=== PATIENT | male | born 1980 | race Hispanic/Latino ===

== ENCOUNTER 2022-05-10 19:12 | Inpatient (IN) | payer OTHER ==
[~2022-05-10] VITALS: Ht 162.6 cm; Wt 91.3 kg
[2022-05-10] MEDS ORDERED: ONDANSETRON 4MG INJ IVP ONE (19:30)
[2022-05-10] MEDS ORDERED: 0.9%NACL 1000ML 1,000 ML IV SCH (19:30)
[2022-05-10] MEDS ORDERED: HYDROMORPHONE 0.5 MG SYG (0.5MG/0.5ML) ONE (19:37)
[2022-05-10] MEDS ORDERED: ACETAMINOPHEN 500 MG TABLET ONE (19:37)
[2022-05-10] MEDS ORDERED: HYDROMORPHONE 0.5 MG SYG (0.5MG/0.5ML) IVP ONE (20:00)
[2022-05-10 20:03] LABS: BASOPHILS % (AUTO) 0.3 % (0.0-5.0); HEMATOCRIT 44.2 % (42-54); LYMPHOCYTES % (AUTO) 3.6 % (21.0-51.0); MEAN CORPUSCULAR HEMOGLOBIN 28.2 pg (27.0-33.0); MEAN CORPUSCULAR HGB CONC 33.9 g/dL (32.0-36.0); MEAN CORPUSCULAR VOLUME 83.1 fL (79-99); MONOCYTES % (AUTO) 1.2 % (3.0-13.0); NEUTROPHILS % (AUTO) 86.3 % (40.0-77.0); PLATELET COUNT (AUTO) 199 K/uL (130-400); RED BLOOD CELL COUNT(AUTO) 5.32 MIL/uL (4.50-6.20); RED CELL DISTRIBUTION WIDTH 13.5 % (11.0-15.5); WHITE BLOOD COUNT (AUTO) 3.4 K/uL (4.8-10.8)
[2022-05-10 20:05] LABS: APPEARANCE,URINE CLEAR (CLEAR); BILIRUBIN,URINE NEGATIVE (NEGATIVE); COLOR,URINE YELLOW (YELLOW); GLUCOSE, URINE (UA) NEGATIVE (NEGATIVE); KETONES,URINE NEGATIVE (NEGATIVE); LEUKOCYTE ESTERASE ,URINE NEGATIVE Leu/uL (NEGATIVE); NITRATE,URINE NEGATIVE (NEGATIVE); OCCULT BLOOD,URINE MODERATE (NEGATIVE); PROTEIN,URINE 70 mg/dL (NEGATIVE); UROBILINOGEN,URINE 0.2 mg/dL (0.2-1.0)
[2022-05-10 20:09] LABS: BACTERIA,URINE RARE /HPF (None Seen); MUCUS,URINE RARE LPF (None Seen); SQUAMOUS EPITHELIAL CELL,UR RARE /HPF (0-2)
[2022-05-10] MEDS ORDERED: ZOSYN 3.375GM+NS 50ML 50 ML IV STA (20:09)
[2022-05-10 20:12] LABS: CREATININE 1.2 mg/dL (0.5-1.5); POTASSIUM 3.5 mmol/L (3.5-5.1)
[2022-05-10 20:17] LABS: ALBUMIN 3.9 g/dL (3.5-5.0)
[2022-05-10] MEDS ORDERED: 0.9%NACL 1000ML 2,500 ML IV ONE (20:30)
[2022-05-10] MEDS ORDERED: KETOROLAC 30MG VIAL (30MG/ML) ONE (21:34)
[2022-05-10 21:48] LABS: AMPHET/METH SCREEN,URINE NEGATIVE (NEGATIVE); BARBITURATE SCREEN, URINE NEGATIVE (NEGATIVE); BENZODIAZEPINES SCREEN,URINE NEGATIVE (NEGATIVE); CANNABINOID SCREEN,URINE NEGATIVE (NEGATIVE); COCAINE SCREEN,URINE POSITIVE (NEGATIVE); OPIATE SCREEN,URINE NEGATIVE (NEGATIVE); PHENCYCLIDINE SCREEN,URINE NEGATIVE (NEGATIVE)
[2022-05-10] MEDS: 0.9%NACL 1000ML 1,000 ML IV SCH (22:16)
[2022-05-10] MEDS ORDERED: ONDANSETRON 4MG INJ IV PRN (22:30)
[2022-05-10] MEDS ORDERED: DIPHENHYDRAMINE HCL 25 MG CAPSULE PO PRN (22:30)
[2022-05-10] MEDS ORDERED: LACTULOSE 20 GM/30 ML UDCUP PO PRN (22:30)
[2022-05-10] MEDS ORDERED: NITROGLYCERIN 0.4 MG SL TAB SL PRN (22:30)
[2022-05-10] MEDS ORDERED: KETOROLAC 15MG/ML VIAL (15MG/ML) IV PRN (22:30)
[2022-05-10 22:36] LABS: HEMOGLOBIN A1C 6.2 % (4.0-6.0)
[2022-05-11] VITALS (25 sets, daily range): BP systolic 89–135; BP diastolic 50–89
[2022-05-11] MEDS ORDERED: ZOSYN 3.375GM+NS 50ML 50 ML IV SCH (05:00)
[2022-05-11] MEDS: FAMOTIDINE 20MG VIAL IV SCH ×2 (09:00→20:29)
[2022-05-11] MEDS ORDERED: BUPIVACAINE/PF 0.5% 10ML VIAL ONE (10:26)
[2022-05-11] MEDS: MEROPENEM 1 GM VIAL IVP SCH ×2 (11:30→23:28)
[2022-05-11] MEDS ORDERED: MIDAZOLAM HCL 1 MG/ML 2ML VIAL ONE (11:35)
[2022-05-11] MEDS ORDERED: PROPOFOL 10 MG/ML 20ML VIAL IV ONE (11:36)
[2022-05-11] MEDS ORDERED: ONDANSETRON 4MG INJ ONE (11:36)
[2022-05-11] MEDS ORDERED: ROCURONIUM 10MG/1ML SYR 10 MG/ML ML ONE ×2 (11:36→14:04)
[2022-05-11] MEDS ORDERED: FENTANYL CITRATE PF 50 MCG/1 ML 5ML AMP IV ONE (11:37)
[2022-05-11] MEDS ORDERED: HYDROMORPHONE 1 MG INJ ONE (13:50)
[2022-05-11] MEDS ORDERED: PHENYLEPHRINE HCL 10 MG/ML 1ML VIAL IV ONE (13:54)
[2022-05-11] MEDS ORDERED: FENTANYL CITRATE PF 50 MCG/1 ML 2ML VIAL ONE ×2 (16:02→16:26)
[2022-05-11] MEDS ORDERED: KETOROLAC 30MG VIAL (30MG/ML) ONE (16:02)
[2022-05-11] MEDS ORDERED: NEOSTIGMINE 5MG/5ML SYR IV ONE (16:38)
[2022-05-11] MEDS ORDERED: GLYCOPYRROLATE 1 MG/5 ML SYRINGE ONE (16:38)
[2022-05-11] MEDS ORDERED: MEPERIDINE-PF 25 MG/ML SYG ONE (17:18)
[2022-05-12 04:10] VITALS: BP 128/85
[2022-05-12] MEDS: 0.9%NACL 1000ML 1,000 ML IV SCH ×2 (04:30→16:59)
[2022-05-12 05:23] LABS: BASOPHILS % (AUTO) 0.2 % (0.0-5.0); EOSINOPHILS % (AUTO) 0.4 % (0.0-8.0); HEMATOCRIT 36.2 % (42-54); LYMPHOCYTES % (AUTO) 8.2 % (21.0-51.0); MEAN CORPUSCULAR HEMOGLOBIN 28.5 pg (27.0-33.0); MEAN CORPUSCULAR HGB CONC 33.4 g/dL (32.0-36.0); MEAN CORPUSCULAR VOLUME 85.2 fL (79-99); MONOCYTES % (AUTO) 4.2 % (3.0-13.0); NEUTROPHILS % (AUTO) 86.3 % (40.0-77.0); PLATELET COUNT (AUTO) 109 K/uL (130-400); RED BLOOD CELL COUNT(AUTO) 4.25 MIL/uL (4.50-6.20); RED CELL DISTRIBUTION WIDTH 13.8 % (11.0-15.5); WHITE BLOOD COUNT (AUTO) 12.1 K/uL (4.8-10.8)
[2022-05-12 05:48] LABS: CREATININE 0.9 mg/dL (0.5-1.5); CRP QUANTITATIVE 158.9 mg/L (0.00-9.0); MAGNESIUM 1.8 mg/dL (1.80-2.40); POTASSIUM 3.9 mmol/L (3.5-5.1)
[2022-05-12 07:55] VITALS: BP 115/63
[2022-05-12] MEDS: MORPHINE 2 MG SYG IM SCH (08:30)
[2022-05-12] MEDS ORDERED: MORPHINE 2 MG SYG ONE (08:33)
[2022-05-12] MEDS: FAMOTIDINE 20MG VIAL IV SCH ×2 (08:44→20:19)
[2022-05-12] MEDS: MEROPENEM 1 GM VIAL IVP SCH ×2 (11:45→22:41)
[2022-05-12 11:55] VITALS: BP 148/83
[2022-05-12 14:50] VITALS: BP 141/88
[2022-05-12] MEDS: HEPARIN 5,000 UNIT VIAL SQ SCH ×2 (14:54→21:05)
[2022-05-12] MEDS ORDERED: IOHEXOL 350 MG/ML 100ML INFUS..BTL IV ONE (15:11)
[2022-05-12 16:00] VITALS: BP 144/93
[2022-05-12] MEDS ORDERED: MAGNESIUM 2GM PREMIX 50ML 50 ML IV PRN (16:00)
[2022-05-12 16:10] LABS: ABG BASE EXCESS -0.9 mmol/L (-2.0-3.0); ABG OXYGEN SATURATION 83.7 % (95.0-99.0); ABG PCO2 36 mmHg (35-48)
[2022-05-12] MEDS: SOLU-MEDROL 125MG VIAL IVP SCH (16:32)
[2022-05-12] MEDS: AZITHROMYCIN 500MG+NS 250ML IVPB SCH (16:59)
[2022-05-12] MEDS: IPRATROPIUM/ALBUTEROL SULFATE 3 ML SOLUTION IH SCH (18:00)
[2022-05-12 19:06] VITALS: BP 147/91
[2022-05-12] MEDS: TRAMADOL HCL 50 MG TABLET PO PRN (20:19)
[2022-05-12] MEDS: GUAIFENESIN-DM 200/20 MG 10 ML PO PRN (20:19)
[2022-05-13 00:06] VITALS: BP_SYST 138; BP_SYST 148; BP_DIAS 72; BP_DIAS 82
[2022-05-13] MEDS: SOLU-MEDROL 125MG VIAL IVP SCH ×3 (00:19→16:53)
[2022-05-13] MEDS: GUAIFENESIN-DM 200/20 MG 10 ML PO PRN ×2 (00:53→23:05)
[2022-05-13 04:18] LABS: BASOPHILS % (AUTO) 0.1 % (0.0-5.0); HEMATOCRIT 38.3 % (42-54); LYMPHOCYTES % (AUTO) 6.8 % (21.0-51.0); MEAN CORPUSCULAR HEMOGLOBIN 28.4 pg (27.0-33.0); MEAN CORPUSCULAR HGB CONC 33.9 g/dL (32.0-36.0); MEAN CORPUSCULAR VOLUME 83.6 fL (79-99); NEUTROPHILS % (AUTO) 90.1 % (40.0-77.0); PLATELET COUNT (AUTO) 143 K/uL (130-400); RED BLOOD CELL COUNT(AUTO) 4.58 MIL/uL (4.50-6.20); RED CELL DISTRIBUTION WIDTH 13.4 % (11.0-15.5)
[2022-05-13 04:38] LABS: CREATININE 0.8 mg/dL (0.5-1.5); MAGNESIUM 2.2 mg/dL (1.80-2.40); POTASSIUM 4.2 mmol/L (3.5-5.1)
[2022-05-13] MEDS: 0.9%NACL 1000ML 1,000 ML IV SCH ×2 (05:50→07:28)
[2022-05-13] MEDS: HEPARIN 5,000 UNIT VIAL SQ SCH ×3 (05:52→21:27)
[2022-05-13] MEDS: MORPHINE 2 MG SYG IM SCH (07:04)
[2022-05-13] MEDS: FAMOTIDINE 20MG VIAL IV SCH ×2 (07:28→21:24)
[2022-05-13] MEDS: TRAMADOL HCL 50 MG TABLET PO PRN ×2 (08:11→21:28)
[2022-05-13] MEDS: SODIUM CHLORIDE 3% FOR INHALATION 4 ML/AMP VIAL.NEB IH SCH ×2 (08:18→18:19)
[2022-05-13 08:22] VITALS: BP 153/99
[2022-05-13] MEDS: IPRATROPIUM/ALBUTEROL SULFATE 3 ML SOLUTION IH SCH ×4 (10:53→23:19)
[2022-05-13] MEDS: MEROPENEM 1 GM VIAL IVP SCH ×2 (11:39→23:05)
[2022-05-13 12:23] VITALS: BP 143/89
[2022-05-13 16:13] VITALS: BP 135/82
[2022-05-13] MEDS: AZITHROMYCIN 500MG+NS 250ML IVPB SCH (16:53)
[2022-05-13 19:01] VITALS: BP 131/80
[2022-05-13 23:02] VITALS: BP 131/68
[2022-05-14] MEDS: SOLU-MEDROL 40MG VIAL IVP SCH ×4 (00:03→23:36)
[2022-05-14 03:48] VITALS: BP 144/84
[2022-05-14 04:19] LABS: BASOPHILS % (AUTO) 0.2 % (0.0-5.0); HEMATOCRIT 36.5 % (42-54); LYMPHOCYTES % (AUTO) 9.5 % (21.0-51.0); MEAN CORPUSCULAR HEMOGLOBIN 28.2 pg (27.0-33.0); MEAN CORPUSCULAR HGB CONC 34.2 g/dL (32.0-36.0); MEAN CORPUSCULAR VOLUME 82.4 fL (79-99); MONOCYTES % (AUTO) 6.8 % (3.0-13.0); NEUTROPHILS % (AUTO) 80.9 % (40.0-77.0); PLATELET COUNT (AUTO) 222 K/uL (130-400); RED BLOOD CELL COUNT(AUTO) 4.43 MIL/uL (4.50-6.20); RED CELL DISTRIBUTION WIDTH 13.1 % (11.0-15.5); WHITE BLOOD COUNT (AUTO) 8.9 K/uL (4.8-10.8)
[2022-05-14 04:40] LABS: ALBUMIN 2.6 g/dL (3.5-5.0); CREATININE 0.9 mg/dL (0.5-1.5); CRP QUANTITATIVE 47.6 mg/L (0.00-9.0); POTASSIUM 3.9 mmol/L (3.5-5.1); TOTAL PROTEIN, SERUM 6.6 g/dL (6.0-8.3)
[2022-05-14] MEDS: HEPARIN 5,000 UNIT VIAL SQ SCH ×3 (05:24→23:34)
[2022-05-14] MEDS: GUAIFENESIN-DM 200/20 MG 10 ML PO PRN ×2 (05:24→20:15)
[2022-05-14] MEDS: SODIUM CHLORIDE 3% FOR INHALATION 4 ML/AMP VIAL.NEB IH SCH ×2 (06:28→21:24)
[2022-05-14] MEDS: IPRATROPIUM/ALBUTEROL SULFATE 3 ML SOLUTION IH SCH ×4 (06:29→23:44)
[2022-05-14 07:30] VITALS: BP 128/69
[2022-05-14] MEDS: MORPHINE 2 MG SYG IM SCH (08:30)
[2022-05-14] MEDS: MEROPENEM 1 GM VIAL IVP SCH ×2 (10:20→23:35)
[2022-05-14] MEDS: FAMOTIDINE 20MG VIAL IV SCH ×2 (10:20→20:15)
[2022-05-14 12:05] VITALS: BP 147/85
[2022-05-14] MEDS: AZITHROMYCIN 500MG+NS 250ML IVPB SCH (15:59)
[2022-05-14 16:59] VITALS: BP 148/82
[2022-05-14 18:55] VITALS: BP 142/83
[2022-05-14] MEDS: TRAMADOL HCL 50 MG TABLET PO PRN (20:16)
[2022-05-14] MEDS: BUDESONIDE 0.5 MG/2 ML INH IH SCH (21:22)
[2022-05-14 23:12] VITALS: BP 138/85
[2022-05-15 03:11] VITALS: BP 151/73
[2022-05-15 04:02] LABS: BASOPHILS % (AUTO) 0.3 % (0.0-5.0); LYMPHOCYTES % (AUTO) 10.5 % (21.0-51.0); MEAN CORPUSCULAR HEMOGLOBIN 27.8 pg (27.0-33.0); MEAN CORPUSCULAR HGB CONC 33.8 g/dL (32.0-36.0); MEAN CORPUSCULAR VOLUME 82.2 fL (79-99); MONOCYTES % (AUTO) 12.3 % (3.0-13.0); NEUTROPHILS % (AUTO) 71.3 % (40.0-77.0); PLATELET COUNT (AUTO) 256 K/uL (130-400); RED CELL DISTRIBUTION WIDTH 13.2 % (11.0-15.5); WHITE BLOOD COUNT (AUTO) 11.3 K/uL (4.8-10.8)
[2022-05-15 04:21] LABS: ALBUMIN 2.7 g/dL (3.5-5.0); CREATININE 0.8 mg/dL (0.5-1.5); CRP QUANTITATIVE 19.8 mg/L (0.00-9.0); TOTAL PROTEIN, SERUM 6.4 g/dL (6.0-8.3)
[2022-05-15] MEDS: HEPARIN 5,000 UNIT VIAL SQ SCH ×3 (06:23→22:48)
[2022-05-15] MEDS: IPRATROPIUM/ALBUTEROL SULFATE 3 ML SOLUTION IH SCH ×4 (06:44→23:05)
[2022-05-15] MEDS: BUDESONIDE 0.5 MG/2 ML INH IH SCH ×2 (06:44→19:05)
[2022-05-15] MEDS: SODIUM CHLORIDE 3% FOR INHALATION 4 ML/AMP VIAL.NEB IH SCH ×2 (06:58→18:34)
[2022-05-15 07:38] VITALS: BP 143/100
[2022-05-15] MEDS: MORPHINE 2 MG SYG IM SCH (08:30)
[2022-05-15] MEDS: FLUCONAZOLE 200 MG/NS 100 ML 100 ML IV SCH ×2 (09:00→09:34)
[2022-05-15] MEDS: TRAMADOL HCL 50 MG TABLET PO PRN ×2 (09:33→19:57)
[2022-05-15] MEDS: SOLU-MEDROL 40MG VIAL IVP SCH ×3 (09:34→23:46)
[2022-05-15] MEDS: FAMOTIDINE 20MG VIAL IV SCH ×2 (09:34→19:57)
[2022-05-15 11:10] VITALS: BP 148/81
[2022-05-15] MEDS: MEROPENEM 1 GM VIAL IVP SCH ×2 (11:59→22:48)
[2022-05-15] MEDS: AZITHROMYCIN 500MG+NS 250ML IVPB SCH (15:35)
[2022-05-15 16:00] VITALS: BP 149/86
[2022-05-15 19:06] VITALS: BP 145/92
[2022-05-16] VITALS (8 sets, daily range): BP systolic 141–174; BP diastolic 78–95
[2022-05-16] MEDS: ACETAMINOPHEN 325 MG TAB PO PRN (03:27)
[2022-05-16 03:31] LABS: HEMATOCRIT 36.9 % (42-54); MEAN CORPUSCULAR HEMOGLOBIN 28.3 pg (27.0-33.0); MEAN CORPUSCULAR HGB CONC 34.7 g/dL (32.0-36.0); MEAN CORPUSCULAR VOLUME 81.6 fL (79-99); NUCLEATED RED BLOOD CELLS 0.3 % (0.0-0.19); RED BLOOD CELL COUNT(AUTO) 4.52 MIL/uL (4.50-6.20); RED CELL DISTRIBUTION WIDTH 13.2 % (11.0-15.5); WHITE BLOOD COUNT (AUTO) 15.8 K/uL (4.8-10.8)
[2022-05-16 03:37] LABS: CREATININE 0.8 mg/dL (0.5-1.5); POTASSIUM 3.9 mmol/L (3.5-5.1)
[2022-05-16] MEDS: HEPARIN 5,000 UNIT VIAL SQ SCH ×3 (05:37→20:14)
[2022-05-16] MEDS: IPRATROPIUM/ALBUTEROL SULFATE 3 ML SOLUTION IH SCH ×4 (06:37→23:07)
[2022-05-16] MEDS: BUDESONIDE 0.5 MG/2 ML INH IH SCH ×2 (06:37→19:36)
[2022-05-16] MEDS: SODIUM CHLORIDE 3% FOR INHALATION 4 ML/AMP VIAL.NEB IH SCH ×2 (06:38→19:36)
[2022-05-16] MEDS: SOLU-MEDROL 40MG VIAL IVP SCH ×2 (08:19→18:02)
[2022-05-16] MEDS: FAMOTIDINE 20MG VIAL IV SCH ×2 (08:23→20:07)
[2022-05-16] MEDS: FLUCONAZOLE 200 MG/NS 100 ML 100 ML IV SCH ×2 (08:25→08:33)
[2022-05-16] MEDS: MEROPENEM 1 GM VIAL IVP SCH (11:19)
[2022-05-16] MEDS ORDERED: LABETALOL 20MG VIAL IV PRN (19:00)
[2022-05-16] MEDS ORDERED: PRED20TA3 PO (19:01)
[2022-05-16] MEDS ORDERED: FLUT1BLS3 IH (19:01)
[2022-05-16] MEDS ORDERED: LEVO-70 PO (19:01)
[2022-05-16] MEDS ORDERED: ALBUHFA IH (19:01)
[2022-05-16] MEDS: TRAMADOL HCL 50 MG TABLET PO PRN (21:03)
[2022-05-17 00:03] VITALS: BP 148/84
[2022-05-17 03:03] VITALS: BP 145/82
[2022-05-17 04:32] LABS: BASOPHILS % (AUTO) 0.6 % (0.0-5.0); EOSINOPHILS % (AUTO) 0.1 % (0.0-8.0); HEMATOCRIT 39.1 % (42-54); LYMPHOCYTES % (AUTO) 9.3 % (21.0-51.0); MEAN CORPUSCULAR HEMOGLOBIN 28.3 pg (27.0-33.0); MEAN CORPUSCULAR HGB CONC 34.3 g/dL (32.0-36.0); MEAN CORPUSCULAR VOLUME 82.5 fL (79-99); MONOCYTES % (AUTO) 9.2 % (3.0-13.0); NEUTROPHILS % (AUTO) 65.5 % (40.0-77.0); NUCLEATED RED BLOOD CELLS 0.3 % (0.0-0.19); PLATELET COUNT (AUTO) 352 K/uL (130-400); RED BLOOD CELL COUNT(AUTO) 4.74 MIL/uL (4.50-6.20); RED CELL DISTRIBUTION WIDTH 13.3 % (11.0-15.5); WHITE BLOOD COUNT (AUTO) 21.6 K/uL (4.8-10.8)
[2022-05-17 04:45] LABS: CREATININE 0.9 mg/dL (0.5-1.5); POTASSIUM 3.8 mmol/L (3.5-5.1)
[2022-05-17] MEDS: ACETAMINOPHEN 325 MG TAB PO PRN (05:32)
[2022-05-17] MEDS: HEPARIN 5,000 UNIT VIAL SQ SCH ×2 (05:45→13:52)
[2022-05-17] MEDS: BUDESONIDE 0.5 MG/2 ML INH IH SCH (07:03)
[2022-05-17] MEDS: SODIUM CHLORIDE 3% FOR INHALATION 4 ML/AMP VIAL.NEB IH SCH (07:03)
[2022-05-17] MEDS: IPRATROPIUM/ALBUTEROL SULFATE 3 ML SOLUTION IH SCH ×2 (07:03→12:03)
[2022-05-17] MEDS: MORPHINE 2 MG SYG IM SCH (07:17)
[2022-05-17 08:48] VITALS: BP 136/72
[2022-05-17] MEDS: FAMOTIDINE 20MG VIAL IV SCH (08:57)
[2022-05-17] MEDS ORDERED: LEVOFLOXACIN 500 MG TABLET PO SCH (09:00)
[2022-05-17] MEDS ORDERED: PREDNISONE 20 MG TABLET PO SCH (09:00)
[2022-05-17] MEDS ORDERED: LOSARTAN 25 MG TABLET PO SCH (09:00)
[2022-05-17] MEDS ORDERED: POLY17PO4 PO (10:16)
[2022-05-17] MEDS ORDERED: LOSA25TA2 PO (10:16)
[2022-05-17] MEDS ORDERED: GUAI5SYR PO (10:16)
[2022-05-17 12:06] VITALS: BP 146/85
[2022-05-17 16:07] VITALS: BP 144/76
== END 2022-05-17 17:30 | disposition home or self-care (01) | DRG 853 ==
LOC: EDH 19:12 → EDHIP 19:13 → 3BH 23:35 → 2DH 05-12 14:58
PROVIDERS: ADMIT Hospitalist; ATTEND Hospitalist
PROC: 0DTJ4ZZ Resection of Appendix, Percutaneous Endoscopic Approach (ICD-10-PCS; principal; 2022-05-11 13:34)
DX: A41.51 Sepsis due to Escherichia coli [E. coli] (principal); J69.0 Pneumonitis due to inhalation of food and vomit; J96.01 Acute respiratory failure with hypoxia; K35.80 Unspecified acute appendicitis; Z20.822 Contact with and (suspected) exposure to COVID-19; E11.9 Type 2 diabetes mellitus without complications; E66.9 Obesity, unspecified; F14.10 Cocaine abuse, uncomplicated; F17.200 Nicotine dependence, unspecified, uncomplicated; F32.A Depression, unspecified; I10 Essential (primary) hypertension; Z82.49 Family history of ischemic heart disease and other diseases of the circulatory system; Z83.3 Family history of diabetes mellitus; Z87.442 Personal history of urinary calculi; Z68.35 Body mass index [BMI] 35.0-35.9, adult
CPT/HCPCS: 36415; 36600; 71045; 71275; 74176; 80048; 80053; 80305; 81001; 82550; 82803; 83036; 83605; 83690; 83735; 84145; 84484; 85025; 85027; 86140; 87040; 87071; 87077; 87088; 87186; 87205; 87635; 87804; 93970; 94640; 94664; 94667; 94668; 94760; C9803; G0378; J0456; J1170; J1450; J1644; J1885; J2175; J2185; J2250; J2370; J2405; J2543; J2704; J2710; J2920; J2930; J3010; J3475; J3490; J7030; J7120; Q9967

== ENCOUNTER 2023-07-12 14:32 | Emergency (ER) | payer OTHER ==
[~2023-07-12] VITALS: Ht 165.1 cm; Wt 81.6 kg
[~2023-07-12 14:32] MED LIST: ALBUHFA IH; FLUT1BLS3 IH; GUAI5SYR PO; LEVO-70 PO; LOSA-417 PO; POLY17PO4 PO; PRED20TA3 PO
[2023-07-12 14:54] VITALS: BP 162/100; PULSE 104; RESP 32
[2023-07-12] MEDS ORDERED: LORAZEPAM 2 MG/ML 1 ML VIAL ONE (15:02)
[2023-07-12] MEDS ORDERED: LORAZEPAM 2 MG/ML 1 ML VIAL IM ONE (15:30)
== END 2023-07-12 15:54 | disposition left against medical advice (07) ==
LOC: EDH 14:32
DX: R06.02 Shortness of breath (principal); I10 Essential (primary) hypertension; Z79.899 Other long term (current) drug therapy; Z88.8 Allergy status to other drugs, medicaments and biological substances
CPT/HCPCS: 99283; 71045; 96372; 93005; J2060